=== PATIENT | male | born 1960 | race Caucasian/White ===

== ENCOUNTER 2019-06-27 10:34 | Outpatient (CLI) | payer BC, SELFPAY ==
--- NOTE | ~2019-06-27 | XR_ITS ---
EXAMINATION: XR chest 2V DATE: 06/27/2019 10:54 INDICATION: Cough TECHNIQUE: Frontal and lateral views of the chest are obtained COMPARISON: None available FINDINGS: The lungs are free of acute opacities. There is no pleural effusion or pneumothorax. The ca rdiomediastinal silhouette is normal. There is mild thoracic spondylosis. IMPRESSION: 1. No acute cardiopulmonary abnormality. Reviewed, dictated and finalized at location A.
== END 2019-06-27 10:35 | disposition home or self-care (01) ==
LOC: ANHIMG 10:41
PROVIDERS: PCP Internal Medicine; Visit Provider Internal Medicine
DX: R05 Cough (principal)
CPT/HCPCS: 71046

== ENCOUNTER 2019-10-30 07:25 | Outpatient (CLI) | payer BC, SELFPAY ==
--- NOTE | ~2019-10-30 | XR_ITS ---
EXAMINATION: XR UGIAC wo kub DATE: 10/30/2019 08:04 INDICATION: Cough. Dysphagia. TECHNIQUE: The patient drank thick barium, gas-producing crystals, and thin barium. Fluoroscopy of th e esophagus, stomach, and proximal small bowel was performed. Fluoroscopy exposure time was 0.5 minut es. The total number of images was 260. Total dose-area product was 3.32 Gy-cm^2. COMPARISON: None. FINDINGS: There is no mass or stricture of the esophagus. Esophageal motility is normal. There is no hiatal hernia. There was no gastroesophageal reflux with provocative maneuvers. The stomach and proxi mal small bowel show normal folding patterns. IMPRESSION: 1. Normal upper gastrointestinal series. Reviewed, dictated and finalized at location A.
== END 2019-10-30 07:26 | disposition home or self-care (01) ==
PROVIDERS: PCP Internal Medicine; Visit Provider Nurse Practitioner
DX: R05 Cough (principal)
CPT/HCPCS: 74246

== ENCOUNTER 2019-11-25 13:42 | Outpatient (CLI) | payer BC, SELFPAY ==
--- NOTE | 2019-11-26 12:10 | WPDPFTINT ---
PFT Interpretation PFT Interpretation: This PFT met all criteria for ATS standards and reproducibility FEV/FVC post bronchodilator 72% of predicted FEV1 92% FVC 91% No bronchodilator challenge was given TLC 86% RV 66% RV/TLC 27% DLCO 133% when adjusted for alveolar volume but not adjusted for hemoglobin Flow volume loops showed showflattening of the expiratory limb peak. Impression: The flow volume loop suggests possible central intrathoracic obstruction. Elevated diffusion capacity may suggest blood in aveoli. Would suggest imaging with CT chest and possible bronchoscopy. Clinical correlation is advised.
== END 2019-11-25 13:43 | disposition home or self-care (01) ==
PROVIDERS: PCP Internal Medicine; Visit Provider Nurse Practitioner
DX: R05 Cough (principal); R94.2 Abnormal results of pulmonary function studies
CPT/HCPCS: 94375; 94726; 94729

== ENCOUNTER 2019-12-02 17:04 | Outpatient (CLI) | payer BC, SELFPAY ==
--- NOTE | ~2019-12-02 | CT_ITS ---
EXAMINATION: CT chest wo con DATE: 12/02/2019 18:00 INDICATION: Cough TECHNIQUE: Computed tomography (CT) of the chest was performed without intravenous contrast. The dose -length product (DLP) was 581.22 mGy-cm. Automated exposure control and iterative reconstruction tech nique were employed. COMPARISON: None FINDINGS: There are multiple pulmonary nodules, the largest of which measures 5 mm in the left lower lobe on image 91. The lungs are free of focal airspace opacities. There is no pleural effusion or pne umothorax. The heart size is normal. Calcified coronary artery atherosclerosis is noted. Calcified pu lmonary nodules are consistent with old granulomatous disease. No pathologically enlarged thoracic ly mph nodes are identified. Punctate calcifications in otherwise normal appearing liver and spleen like ly represent healed granulomatous disease. A bone island is noted in the left humeral head. There is mild thoracic spondylosis. IMPRESSION: 1. No CT correlate for the patient's symptoms. 2. Multiple pulmonary nodules injuring up to 5 mm. If the patient has no risk factors for malignancy, no further follow up is required. If there are risk factors for malignancy (i.e., history of smokin g, asbestos or radiation exposure), consider followup CT in 12 months. Reviewed, dictated and finalized at location A. IMPRESSION: 1. No CT correlate for the patient's symptoms. 2. Multiple pulmonary nodules injuring up to 5 mm. If the patient has no risk f actors for malignancy, no further follow up is required. If there are risk fac tors for malignancy (i.e., history of smoking, asbestos or radiation exposure), consider followup CT in 12 months.
== END 2019-12-02 17:05 | disposition home or self-care (01) ==
PROVIDERS: PCP Internal Medicine; Visit Provider Internal Medicine
DX: R05 Cough (principal); R94.2 Abnormal results of pulmonary function studies; R91.8 Other nonspecific abnormal finding of lung field
CPT/HCPCS: 71250

== ENCOUNTER 2020-04-07 07:31 | Outpatient (CLI) | payer BC, SELFPAY ==
--- NOTE | ~2020-04-07 | US_ITS ---
EXAMINATION: US right upper quadrant DATE: 04/07/2020 08:00 INDICATION: Other specified abnormal findings of blood chemistry. TECHNIQUE: Multiple grayscale and Doppler ultrasound images of the abdomen were obtained. COMPARISON: Chest CT 12/02/2019 FINDINGS: The visualized portions of the head and body of the pancreas are normal. There is diffuse h epatic steatosis with focal sparing in the gallbladder fossa. No liver surface nodularity. There is n ormal flow in main portal vein. The gallbladder is normal in size. No gallstones or gallbladder wall thickening. There was no sonographic Alas sign. The common duct is normal and measures 3 mm. IMPRESSION: 1. Diffuse hepatic steatosis. Reviewed, dictated and finalized at location A. [employer]
== END 2020-04-07 07:32 | disposition home or self-care (01) ==
PROVIDERS: Family Provider Internal Medicine; PCP Internal Medicine; Visit Provider Nurse Practitioner
DX: R79.89 Other specified abnormal findings of blood chemistry (principal); K76.0 Fatty (change of) liver, not elsewhere classified
CPT/HCPCS: 76705

== ENCOUNTER 2025-01-20 13:30 | Outpatient (CLI) | payer SELFPAY ==
--- NOTE | ~2025-01-20 | US_ITS ---
EXAM/PROCEDURE: US renal bilateral HISTORY: R80.9 - Proteinuria, unspecified COMPARISON: Ultrasound of the right upper quadrant from 2020 TECHNIQUE: FINDINGS: The liver is significantly echogenic and attenuates the sound beam, most likely related to fatty infiltration. Right Kidney: There is no hydronephrosis seen on either side. No urinary tract stones are seen on the images submitted. There is a cyst present. No suspicious masses are seen. Left Kidney: There is no hydronephrosis seen on either side. No urinary tract stones are seen on the images submitted. There is a cyst present. No suspicious masses are seen. Bladder: No stones or soft tissue filling defects are seen. Ureteral jets are not seen. IMPRESSION: No acute renal findings. Reviewed, dictated and finalized at location A. TENDER IMPRESSION: No acute renal findings.
== END 2025-01-20 13:31 | disposition home or self-care (01) ==
PROVIDERS: PCP Nurse Practitioner Family; Visit Provider Nurse Practitioner Family
DX: R80.9 Proteinuria, unspecified (principal)
CPT/HCPCS: 76770